=== PATIENT | female | born 1980 | race African-American/Black ===

== ENCOUNTER 2017-09-13 17:11 | Emergency (ER) | payer OTHER ==
[2017-09-13 18:02] VITALS: BP 121/90; PULSE 126; TEMP 101; BMI 27.1
--- NOTE | 2017-09-13 18:03 | PDOC ---
Rapid Medical Evaluation Time Seen by Provider: 09/13/17 17:53 Medical Evaluation: 09/13/17 17:55 I have performed a brief in-person evaluation of this patient. The patient presents with a chief complaint of: Right lower Abdominal pain , N/ V for one day two days ago. History of kidney infections with stent placement , removed in 11/02. History of fibroids, had sexual intercourse 2 days ago and bled a large amount during. LMP 08/27 last 7 days, normal as per patient. Patient thinks that she has a UTI, pain is same in the past. PCN Sulfa Allergies. Pertinent physical exam findings: Right lateral abdominal discomfort and pain I have ordered the following: Urinalysis, urine culture, urine percocet, 1 tab The patient will proceed to the ED for further evaluation.
[2017-09-13 18:21] LABS: URINE APPEARANCE SLCLOUDY; URINE BILIRUBIN NEGATIVE (NEGATIVE); URINE BLOOD 2+ (NEGATIVE); URINE COLOR LTYELLOW; URINE GLUCOSE (UA) NEGATIVE (NEGATIVE); URINE KETONE NEGATIVE (NEGATIVE); URINE LEUK ESTERASE TRACE (NEGATIVE); URINE NITRITE NEGATIVE (NEGATIVE); URINE PROTEIN NEGATIVE (NEGATIVE); URINE UROBILINOGEN NEGATIVE mg/dL (0.2-1.0)
[2017-09-13 18:28] LABS: EPI CELLS RARE /HPF (FEW)
[2017-09-13 18:46] LABS: HCG,QUALITATIVE URINE NEGATIVE
[2017-09-13] MEDS ORDERED: SODIUM CHLORIDE 0.9% 500 ML INFUS.BAG IV ONE (19:56)
[2017-09-13] MEDS ORDERED: ACETAMINOPHEN 325 MG TABLET (FP) PO ONE (19:56)
--- NOTE | 2017-09-13 20:23 | PDOC ---
History of Present Illness - General History Source: Patient Exam Limitations: No Limitations - History of Present Illness Initial Comments: 09/13/17 20:34 The patient is a A1, 37 year old, female with a significant PMH of asthma and fibroids who presents to the emergency department with a sharp 10/10 right abdominal pain for the past 2 days.The patient states the abdominal pain is alleviated by lying flat but exacerbated with turning. The patient states she had a similar pain in 2016 when she was diagnosed with a fibroid. The patient states she took tylenol and advil for her abdominal pain with no relief of symptoms. The patient also complains of multiple episodes of both clear and yellow colored emesis two days ago but no emesis yesterday. The patient reports she has not been tolerating PO intake for the past two days. The patient states she attempted have intercourse with her three days ago after about a year and a half and had an episode of vaginal bleeding. Her LMP was on .The patient denies family history of kidney stones. The patient denies chest pain, shortness of breath, headache and dizziness. Denies flank pain, fever, chills, nausea, vomit, diarrhea and constipation. Denies dysuria, frequency, urgency and hematuria. Allergies: Sulfa, penicillins Past surgical history: Stent placement for fibroid Social history: Current smoker. No reported alcohol or drug use. PCP: Dr. Vernon <Jackie Alcala - Last Filed: 09/14/17 00:00> <Brianna Ulrich - Last Filed: 09/14/17 19:37> - General Chief Complaint: Pain Stated Complaint: ABD PAIN Time Seen by Provider: 09/13/17 17:53 Past History <Jackie Alcala - Last Filed: 09/14/17 00:00> - Suicide/Smoking/Psychosocial Hx Smoking History: Current every day smoker Number of Cigarettes Smoked Daily: 6 Information on smoking cessation initiated: No <rBianna Ulrich - Last Filed: 09/14/17 19:37> - Past Medical History Allergies/Adverse Reactions: Allergies Allergy/AdvReac Type Severity Reaction Status Date / Time Penicillins Allergy Verified 09/13/17 17:59 Sulfa (Sulfonamide Allergy Verified 09/13/17 17:59 Antibiotics) Home Medications: Ambulatory Orders NK [No Known Home Medication] 09/13/17 Review of Systems - Review of Systems Able to Perform ROS?: Yes Comments:: 09/13/17 20:34 GENERAL/CONSTITUTIONAL: No fever or chills. No weakness. HEAD, EYES, EARS, NOSE AND THROAT: No change in vision. No ear pain or discharge. No sore throat. CARDIOVASCULAR: No chest pain or shortness of breath. RESPIRATORY: No cough, wheezing, or hemoptysis. GASTROINTESTINAL: (+) Right abdominal pain. (+) Vomiting. No diarrhea or constipation. GENITOURINARY: No dysuria, frequency, or change in urination. MUSCULOSKELETAL: No joint or muscle swelling or pain. No neck or back pain. SKIN: No rash NEUROLOGIC: No headache, vertigo, loss of consciousness, or change in strength/ sensation. ENDOCRINE: No increased thirst. No abnormal weight change. HEMATOLOGIC/LYMPHATIC: No anemia, easy bleeding, or history of blood clots. ALLERGIC/IMMUNOLOGIC: No hives or skin allergy. <Jackie Alcala - Last Filed: 09/14/17 00:00> *Physical Exam - Vital Signs Last Vital Signs Temp Pulse Resp BP Pulse Ox 101 F H 126 H 18 121/90 99 09/13/17 17:59 09/13/17 17:59 09/13/17 17:59 09/13/17 17:59 09/13/17 17:59 - Physical Exam Comments: 09/13/17 20:35 GENERAL: Awake, alert, and fully oriented, in no acute distress HEAD: No signs of trauma EYES: PERRLA, EOMI, sclera anicteric, conjunctiva clear ENT: Auricles normal inspection, hearing grossly normal, nares patent, oropharynx clear without exudates. Moist mucosa NECK: Normal ROM, supple, no lymphadenopathy, JVD, or masses LUNGS: Breath sounds equal, clear to auscultation bilaterally. No wheezes, and no crackles HEART: Regular rate and rhythm, normal S1 and S2, no murmurs, rubs or gallops ABDOMEN: (+) Tender to the RUQ and RLQ. (+) Large, immobile, hard approx. 15*15 fibroid mass. (+) Umbilical hernia. Soft, nontender, normoactive bowel sounds. No guarding, no rebound. No masses EXTREMITIES: Normal range of motion, no edema. No clubbing or cyanosis. No cords, erythema, or tenderness NEUROLOGICAL: Cranial nerves II through XII grossly intact. Normal speech, normal gait SKIN: Warm, Dry, normal turgor, no rashes or lesions noted. <Jackie Alcala - Last Filed: 09/14/17 00:00> - Vital Signs Last Vital Signs Temp Pulse Resp BP Pulse Ox 101 F H 126 H 18 121/90 99 09/13/17 17:59 09/13/17 17:59 09/13/17 17:59 09/13/17 17:59 09/13/17 17:59 <Brianna Ulrich - Last Filed: 09/14/17 19:37> ED Treatment Course - LABORATORY CBC & Chemistry Diagram: 09/13/17 20:28 09/13/17 20:28 - ADDITIONAL ORDERS Additional order review: Laboratory Results 09/13/17 18:07 Urine Color Ltyellow Urine Appearance Slcloudy Urine pH 6.0 Ur Specific [place] 1.005 Urine Protein Negative Urine Glucose (UA) Negative Urine Ketones Negative Urine Blood 2+ H Urine Nitrite Negative Urine Bilirubin Negative Urine Urobilinogen Negative Urine WBC (Auto) 2 Urine RBC (Auto) 5 Ur Epithelial Cells Rare Urine HCG, Qual Negative - Medications Given in the ED: ED Medications Discontinued Medications Generic Name Dose Route Start Last Admin Trade Name Freq PRN Reason Stop Dose Admin Oxycodone/Acetaminophen 1 combo 09/13/17 18:04 09/13/17 19:36 Percocet 5/325 - PO 09/13/17 18:05 1 combo ONCE ONE Administration <Jackie Alcala - Last Filed: 09/14/17 00:00> - LABORATORY CBC & Chemistry Diagram: 09/13/17 20:28 09/13/17 20:28 - ADDITIONAL ORDERS Additional order review: Laboratory Results 09/13/17 18:07 Urine Color Ltyellow Urine Appearance Slcloudy Urine pH 6.0 Ur Specific [place] 1.005 Urine Protein Negative Urine Glucose (UA) Negative Urine Ketones Negative Urine Blood 2+ H Urine Nitrite Negative Urine Bilirubin Negative Urine Urobilinogen Negative Urine WBC (Auto) 2 Urine RBC (Auto) 5 Ur Epithelial Cells Rare Urine HCG, Qual Negative - RADIOLOGY Radiology Studies Ordered: Category Date Time Status ABDOMEN & PELVIS CT W/O CONTR [CT] Stat CT Scan 09/13/17 19:55 Ordered - Medications Given in the ED: ED Medications Discontinued Medications Generic Name Dose Route Start Last Admin Trade Name Neftaly PRN Reason Stop Dose Admin Oxycodone/Acetaminophen 1 combo 09/13/17 18:04 09/13/17 19:36 Percocet 5/325 - PO 09/13/17 18:05 1 combo ONCE ONE Administration <Brianna Ulrich - Last Filed: 09/14/17 19:37> Medical Decision Making - Medical Decision Making 09/14/17 19:35 Pt comes with abd pain; she has a large fibroid; no UTI and no obstruction. CT scan result demonstrates only a large fibroid. Pt will follow with [facility] for lective surgical treatment. Pt is improved in the ER after treatment. Abd soft, NT, ND; she has a large mass extending from pelvis to umbilicus. <Brianna Ulrich - Last Filed: 09/14/17 19:37> *DC/Admit/Observation/Transfer - Attestations Scribe Attestion: 09/13/17 20:37 Documentation prepared by Jackie Alcala, acting as phlebotomist medical lab assistant for Brianna Ulrich MD. <Jackie Alcala - Last Filed: 09/14/17 00:00> - Discharge Dispostion Admit: No <Brianna Ulrich - Last Filed: 09/14/17 19:37> Diagnosis at time of Disposition: Uterine fibroid - Discharge Dispostion Disposition: HOME Condition at time of disposition: Improved - Referrals Referrals: Ml Vernon MD [Primary Care Provider] - Yolanda Dasilva MD [Staff Physician] - Sylvia Menendez MD [Staff Physician] - - Patient Instructions Printed Discharge Instructions: Facts About Fibroids, Myomectomy -- Open Surgery - Post Discharge Activity
[2017-09-13] MEDS ORDERED: ACETAMINOPHEN 325 MG TABLET (FP) ONE (20:35)
[2017-09-13 21:04] LABS: BASO % 0.3 % (0-2.0); EOS % 0.3 % (0-4.5); HEMATOCRIT 39.4 % (32.4-45.2); HEMOGLOBIN 13.3 GM/dL (10.7-15.3); LYMPH % 15.1 % (8-40); MCH 31.5 pg (25.7-33.7); MCHC 33.7 g/dl (32.0-36.0); MEAN CELL VOLUME 93.5 fl (80-96); MEAN PLT VOLUME 8.6 fl (7.5-11.1); MONO % 10.6 % (3.8-10.2); NEUT % 73.7 % (42.8-82.8); PLATELET COUNT 202 K/MM3 (134-434); RBC 4.22 M/mm3 (3.60-5.2); RDW 16.3 % (11.6-15.6)
[2017-09-13 21:17] LABS: INR 1.11 (0.82-1.09); PROTHROMBIN TIME (PATIENT) 12.5 SEC (9.98-11.88)
[2017-09-13 21:26] LABS: ALBUMIN 3.5 g/dl (3.4-5.0); ANION GAP 9 (8-16); BILIRUBIN,TOTAL 0.5 mg/dL (0.2-1.0); BLOOD UREA NITROGEN 7 mg/dL (7-18); CALCIUM 8.5 mg/dL (8.5-10.1); CHLORIDE 102 mmol/L (98-107); CO2 24 mmol/L (21-32); CREATININE 0.7 mg/dL (0.55-1.02); GLUCOSE,RANDOM 90 mg/dL (74-106); POTASSIUM 3.3 mmol/L (3.5-5.1); SGOT/AST 24 U/L (15-37); SGPT/ALT 26 U/L (12-78); SODIUM 135 mmol/L (136-145); TOT PROT 7.2 g/dl (6.4-8.2)
[2017-09-13 21:27] LABS: ALK PHOS 40 U/L (45-117)
[2017-09-13] MEDS ORDERED: POTASSIUM CHLORIDE TABS 20 MEQ TABLET.ER (FP) PO ONE ×2 (22:47→23:36)
[2017-09-13] MEDS ORDERED: morphine CARPU-JECT 2 MG/1 ML DISP.SYRIN IVPUSH ONE (23:47)
[2017-09-13] MEDS ORDERED: morphine CARPU-JECT 10 MG/1 ML DISP.SYRIN ONE (23:58)
== END 2017-09-14 01:30 | disposition home or self-care (01) ==
LOC: JER 17:11
PROC: 3E033NZ Introduction of Analgesics, Hypnotics, Sedatives into Peripheral Vein, Percutaneous Approach (ICD-10-PCS; principal; 2017-09-13)
DX: D25.9 Leiomyoma of uterus, unspecified (principal)
CPT/HCPCS: 36415; 74176-TC; 80053; 81003; 81015; 84703; 85025; 85610; 87086; 99283-25